=== PATIENT | female | born 1960 | race Caucasian/White ===

== ENCOUNTER 2018-04-18 11:26 | Emergency (ER) | payer BC ==
[~2018-04-18] VITALS: Ht 162.6 cm; Wt 74.8 kg
[~2018-04-18 11:26] MED LIST: COZAAR25 MG PO; FIORINAL-COD 31 EACH PO; Z.0.METRONIDAZOLE500 PO; Z.0.PAROXETINE HCL20 PO
[2018-04-18 12:10] LABS: BASOPHILS # (AUTO) 0.1 (0.0-0.1); BASOPHILS % 0.5 % (0.0-1.0); EOSINOPHILS # (AUTO) 0.2 (0.0-0.4); EOSINOPHILS % 2.4 % (0.0-6.0); HEMATOCRIT 39.8 % (34.2-44.1); HEMOGLOBIN 13.5 g/dL (12.0-16.0); LYMPHOCYTES # (AUTO) 2.7 (1.0-3.2); LYMPHOCYTES % 28.5 % (18.0-39.1); MEAN CORPUSCULAR HEMOGLOBIN 30.3 pg (28-32); MEAN CORPUSCULAR HGB CONC 33.9 g/dL (31-35); MEAN CORPUSCULAR VOLUME 89.4 fL (81-99); MONOCYTES # (AUTO) 0.7 (0.2-0.8); MONOCYTES % 7.3 % (4.4-11.3); NEUTROPHILS # (AUTO) 5.8 (2.1-6.9); PLATELET COUNT 222 x10e3/uL (140-360); RED BLOOD COUNT 4.45 x10e6/uL (3.6-5.1); RED CELL DISTRIBUTION WIDTH 13.1 % (11.7-14.4)
[2018-04-18 12:14] LABS: COLOR,URINE YELLOW (YELLOW); LEUKOCYTE ESTERASE ,URINE NEGATIVE (NEGATIVE); NITRITE,URINE NEGATIVE (NEGATIVE); PROTEIN,URINE DIPSTICK 2+ (NEGATIVE)
[2018-04-18 12:15] LABS: BILIRUBIN,URINE NEGATIVE (NEGATIVE); CLARITY,URINE HAZY (CLEAR); KETONES,URINE NEGATIVE (NEGATIVE); URINE UROBILINOGEN 0.2 mg/dL (0.2 - 1)
[2018-04-18] MEDS ORDERED: KETOROLAC TROMETHAMINE 30 MG/ML VIAL IV STA (12:18)
[2018-04-18] MEDS ORDERED: ONDANSETRON HCL INJ 2 MG/ML VIAL IV STA ×2 (12:18→17:42)
[2018-04-18 12:28] LABS: BACTERIA,URINE FEW /HPF; EPITHELIAL CELLS,URINE FEW /LPF; RBC,URINE 0-5 /HPF (0-5); WBC,URINE (MAN) 0-5 /HPF (0-5)
[2018-04-18 12:33] LABS: ALANINE AMINOTRANSFERASE 18 IU/L (0-55); ALBUMIN 3.7 g/dL (3.5-5.0); ALBUMIN/GLOBULIN RATIO 1.3 (0.8-2.0); ALKALINE PHOSPHATASE 96 IU/L (40-150); ANION GAP 14.7 mmol/L (8-16); BLOOD UREA NITROGEN 13 mg/dL (7-26); BUN/CREATININE RATIO 19 (6-25); CALCIUM 10.1 mg/dL (8.4-10.2); CARBON DIOXIDE 27 mmol/L (22-29); CHLORIDE 103 mmol/L (98-107); CREATININE, SERUM 0.67 mg/dL (0.57-1.11); EST GLOMERULAR FILTRATION RATE > 60 ML/MIN (60-); GLUCOSE 108 mg/dL (74-118); POTASSIUM 3.7 mmol/L (3.5-5.1); SODIUM 141 mmol/L (136-145)
[2018-04-18] MEDS ORDERED: DIATRIZOATE MEGL/DIATRIZOA SOD 30 ML BTL PO ONE (12:44)
[2018-04-18] MEDS ORDERED: HYDROMORPHONE 1MG/1ML INJ IV STA ×2 (13:04→17:42)
--- NOTE | 2018-04-18 14:12 | Diagnostic Imaging Report ---
EXAM: CT Abdomen and Pelvis WITH contrast INDICATION: Left lower quadrant pain for 2 days \S\LLQ PAIN RADIATES TO BACKQ \[id number] \S\1320 \S\N COMPARISON: None. TECHNIQUE: Abdomen and pelvis were scanned utilizing a multidetector helical scanner from the lung base to the pubic symphysis after administration of IV contrast. Coronal and sagittal reformations were obtained. Routine protocol was performed. Scan was performed when during portal venous phase. IV CONTRAST: 100 mL of Isovue-370 ORAL CONTRAST: Gastroview COMPLICATIONS: None RADIATION DOSE: Total DLP: 500.03 mGy*cm Estimated effective dose: (DLP x 0.015 x size factor) mSv CTDIvol has been reviewed. It is below the limits set by the Radiation Protocol Committee (RPC). FINDINGS: LINES and TUBES: None. LOWER THORAX: Multiple surgical clips along the right hemidiaphragm. HEPATOBILIARY: No focal hepatic lesions. No biliary ductal dilation. GALLBLADDER: No radio-opaque stones or sludge. No wall thickening. SPLEEN: No splenomegaly. PANCREAS: No focal masses or ductal dilatation. ADRENALS: Thickened left adrenal gland. Unremarkable right adrenal gland. KIDNEYS/URETERS: Kidneys enhance symmetrically. No hydronephrosis. No cystic or solid mass lesions. No stones. GI TRACT: No abnormal distention, wall thickening, or evidence of bowel obstruction. 3.9 cm duodenal diverticulum along the second duodenal segment. Appendix is normal. PELVIC ORGANS/BLADDER: Unremarkable. LYMPH NODES: No lymphadenopathy. VESSELS: There is moderate atherosclerotic disease in the aorta and major arterial branches. No abdominal aortic aneurysm. PERITONEUM / RETROPERITONEUM: No free air or fluid. BONES: There are degenerative changes in the lumbar spine. Mild wedging of T11 and T12. SOFT TISSUES: Gluteal injection granulomas. IMPRESSION: No acute abnormalities in the abdomen and pelvis. Signed by: DR. Steve Shaffer MD on 04/18/2018 2:09 PM
[2018-04-18] MEDS ORDERED: IOPAMIDOL 370 MG/ML 200 ML INFUS..BTL INJ ONE (14:54)
[2018-04-18] MEDS ORDERED: SODIUM CHLORIDE 0.9% 50ML 50 ML ONE (14:54)
[2018-04-18 18:11] VITALS: BP 155/82
== END 2018-04-18 18:11 | disposition home or self-care (01) ==
LOC: ER 11:26
DX: R10.32 Left lower quadrant pain (principal); R11.0 Nausea; I10 Essential (primary) hypertension; F32.9 Major depressive disorder, single episode, unspecified
CPT/HCPCS: 36415; 74177; 80053; 81001; 85025; 99284; J1170; J1885; J2405; Q9967

== ENCOUNTER 2020-04-14 18:42 | Emergency (ER) | payer BC ==
[~2020-04-14] VITALS: Ht 162.6 cm; Wt 77.1 kg
[2020-04-14] MEDS ORDERED: LIDOCAINE 1% W/EPINEPHRINE 20 ML VIAL INJ ONE (19:00)
[2020-04-14] MEDS ORDERED: HYDROCODONE/APAP 5MG-325MG TAB PO ONE (19:00)
[2020-04-14] MEDS ORDERED: TETANUS/DIPHTHERIA TOX ADULT 0.5 ML SYR IM ONE (19:00)
--- NOTE | 2020-04-14 19:12 | Emergency Department Note ---
History of Present Illnes History of Present Illness Chief Complaint: Extremity Trauma/Pain History of Present Illness This is a 60 year old female presents with c/o laceration to left elbow s/p slipping and falling landing on concreted, also c/o abrasion to left pinky toe, denies head injury, denies loc . Historian: Patient Arrival Mode: Car Machine Zipper Trimmer Required: No Onset (how long ago): minute(s) (30) Location: left elbow Quality: laceration and pain Radiation: Reports non-radiation Severity: moderate Onset quality: sudden Duration (how long): hour(s) (30 minutes) Timing of current episode: constant Progression: unchanged Chronicity: new Context: Reports trauma/injury (as above) Relieving factors: none Associated symptoms: Reports denies other symptoms Treatments prior to arrival: none Past Medical/Family History Physician Review I have reviewed the patient's past medical and family history. Any updates have been documented here. Past Medical History Recent Fever: No Clinical Suspicion of Infectio: No New/Unexplained Change in Ment: No Past Medical History: Hypertension, Diabetes, Hyperlipedemia Other Medical History: ANXIETY, DEPRESSION Past Surgical History: Other Surgery: COLON RESECTION X2 LT EAR SURGERY NOSE SURGERY FOR STAPH CARPAL TUNNEL KATYA WRIST RT FOOT BROKEN BONE Social History Smoking Cessation: Never Smoker Alcohol Use: None Any Illegal Drug Use: No Family History Family history of heart diseas: No Other Last Tetanus: <10 YRS Review of Systems Review of Systems Constitutional: Reports no symptoms EENTM: Reports no symptoms Cardiovascular: Reports no symptoms Respiratory: Reports no symptoms Gastrointestinal: Reports no symptoms Genitourinary: Reports no symptoms Musculoskeletal: Reports as per HPI Integumentary: Reports no symptoms Neurological: Reports no symptoms Psychological: Reports no symptoms Endocrine: Reports no symptoms Hematological/Lymphatic: Reports no symptoms Physical Exam Related Data Allergies: Coded Allergies: No Known Drug Allergies (Verified Allergy, Unknown, NONE, 04/18/18) Triage Vital Signs Vital Signs Date Time Temp Pulse Resp B/P (MAP) Pulse Ox O2 Delivery O2 Flow Rate FiO2 04/14/20 18:53 98.2 67 18 149/88 98 04/14/20 19:01 Room Air Vital signs reviewed: Yes Physical Exam CONSTITUTIONAL Constitutional: Present well-developed, Present well-nourished, Present distressed (mild) HENT HENT: Present normocephalic, Present atraumatic, Present oropharynx clear/moist, Present nose normal HENT L/R: Present left ext ear normal, Present right ext ear normal EYES Eyes: Reports PERRL, Reports conjunctivae normal NECK Neck: Present ROM normal PULMONARY Pulmonary: Present effort normal, Present breath sounds normal CARDIOVASCULAR Cardiovascular: Present regular rhythm, Present heart sounds normal, Present capillary refill normal, Present normal rate GASTROINTESTINAL Abdominal: Present soft, Present nontender, Present bowel sounds normal GENITOURINARY Genitourinary: Present exam deferred SKIN Skin: Present warm, Present dry, Present other (3.5 cm laceration to posterior left elbow, abrasion to left 5th toe) MUSCULOSKELETAL Musculoskeletal: Present tenderness (left elbow), Present swelling (mild left elbow), Present other (pain with rom of left elbow although full rom remains intact, n/v intact); Absent deformity NEUROLOGICAL Neurological: Present alert, Present oriented x 3, Present no gross motor or sensory deficits PSYCHOLOGICAL Psychological: Present mood/affect normal, Present judgement normal Results Imaging Imaging results reviewed: Yes Procedures Laceration Laceration: Laceration 1 Site: upper extremity Side: left (posterior elbow) Size (cm): 3.5 Description: linear Depth: simple, single layer Local anesthesia: lidocaine 1%, with epi Amount of anesthesia (mL): 7 Pre-repair: wound exposed, irrigated extensively, deep structures intact Skin layer closed with: other (prolene) Size (cm): other (2-0) Number of sutures: 9 Technique: simple, interrupted Assessment & Plan Medical Decision Making MDM pt with left elbow injury s/p fall, has 3.5 cm laceration to posterior elbow and pain with palpation and rom left elbow xray ordered to eval for fracture. norco 5/325 ordered po tetanus 0.5 cc im ordered no fracture seen on xray laceration repaired see repair note Patient discharged with prescriptions for Keflex 500 mg one by mouth 3 times a day #30 and Tylenol No. 3 one by mouth every 6 hours #15 Patient instructed on cleaning the wound twice a day with mild soap and water and to have sutures removed in 14 days. Assessment & Plan Final Impression: (1) Laceration of left elbow (2) Abrasion of fifth toe, left Depart Disposition: HOME, SELF-CARE Last Vital Signs Date Time Temp Pulse Resp B/P (MAP) Pulse Ox O2 Delivery O2 Flow Rate FiO2 04/14/20 19:01 98.2 102 17 128/88 97 Room Air Home Meds Reported Medications Codeine/Butalbital/Asa/Caffein (FIORINAL-COD [id number] CAP) 1 Each Capsule, 1 TAB PO TID 07/04/13 Losartan Potassium (COZAAR) 25 Mg Tablet, 25 MG PO DAILY 07/04/13 Paroxetine Hcl (Paroxetine Hcl) 20 Mg Tablet, 20 MG PO DAILY 03/08/12 Medications in the ED Acetaminophen/ Hydrocodone Bitart 1 ea ONCE ONCE PO ; Start 04/14/20 at 19:00; Stop 04/14/20 at 19:01; Status DC Lidocaine/ Epinephrine ONCE ONCE INJ ; Start 04/14/20 at 19:00; Stop 04/14/20 at 19:01; Status DC Tetanus/ Diphtheria Toxoids 0.5 ml ONCE ONCE IM ; Start 04/14/20 at 19:00; Stop 04/14/20 at 19:01; Status DC ETHEL MÁRQUEZ MD Apr 14, 2020 19:12
--- OUTSIDE RECORDS SUMMARY | 2020-04-14 19:16 | XMS REPORT | Continuity of Care Document ---
Author Author [facility] TalkBin ZayraDESI [facility] Information i-marker Address Unknown Phone Unavailable Care Team Providers Care Research And Development Scientist Name Role Phone [facility] Information Exchange Unavailable Un available Problems Problem Status Onset Date Classification Date Reported Comments Source Other abnormal and inconclusive findings on diagnostic imaging of breast 07/21/2018 12/01/2018 [facility] R98.0 Active 05/14/2018 [facility] R92.8 - OTH ABN AND INCONCLUSIVE FINDI Active 12/16/2017 [facility] DX; R92.8=OTHER ABNORMAL AND INCONCLUSIV Active 09/20/2016 [facility] N63 - UNSPECIFIED LUMP IN BREAST Active 08/30/2016 [facility] Z12.31 - ENCNTR SCREEN MAMMOGRAM FOR MA Active 06/29/2016 [facility] Medications No Data Provided for This Section Allergies, Adverse Reactions, Alerts No Known Medication Allergies Immunizations No Data Provided for This Section Results No Data Provided for This Section Pathology Reports No Data Provided for This Section Diagnostic Reports Report Value Date Source Breast Mammo Diag MARVIN w radha incl CAD MA BILATERAL DIGITAL DIAGNOSTIC MAMMOGRAM 3D/2D WITH CAD: 05/14/2018 CLINICAL: Follow Up On Calcs/Abnormal Mammogram. Current study was evaluated with a Computer Aided Detection (CAD) system. COMPARISON:Comparison is made to exams dated: 09/13/2016 mammogram, 08/22/2016 mammogram - [facility], and 09/27/2016 stereotactic biopsy - [facility]. TECHNIQUE: Digital Breast Tomosynthesis was performed and utilized for Interpretation. CogniFit Version 1.3 was utilized for computer aided detection. FINDINGS: The tissue of both breasts is almost entirely fat. There are benign calcifications in both breasts. There also is a biopsy clip in the right breast. No significant masses, calcifications, or other findings are seen in either breast. There has been no significant interval change. IMPRESSION: BENIGN RECOMMENDATION:There is no mammographic evidence of malignancy. A 1 year screening mammogram is recommended.(05/15/2019) This exam was interpreted at [id number] for [facility] [place]. Ganesh ramsey/david:05/14/2018 14:53:37 Front End Wheel Loader Operator(s): Isabella Mendoza, [facility] letter sent: BI-RADS 1/2 Mammogram BI-RADS: 2 Benign 05/14/2018 [facility] Stereo Breast BX Uni /Clip Secondary SD - STEREO BREAST BX UNI /CLIP SECONDARY SD/R STEREOTACTIC GUIDED BIOPSY RIGHT BREAST WITH MARKING DEVICE INSERTED AND POST DIGITAL MAMMOGRAPHIC IMAGING AND RADIOGRAPHIC SPECIMEN IMAGIN09/27/2016 CLINICAL: Indeterminate low suspicion right breast calcifications. PATIENT CONSENT: Oral and written informed consent was obtained. Risks, benefits, and alternatives were discussed with the patient. Risks include but are not limited to pain, infection, bleeding, incomplete procedure, repeat procedure, pneumothorax, damage to surrounding tissues, and allergic reaction. The patient understands the plan and wishes to proceed. A time out was performed immediately prior to the procedure to confirm the patient's identity (name/date of ) and correct procedure site. Correlation is made to exams dated: 08/22/2016 mammogram and 09/13/2016 mammogram - [facility]. A stereotactic guided biopsy was performed for the concerning area of clustered calcifications located in the right breast at 2 o'clock posterior depth. This was described on the previous mammography report. The skin was prepped in the usual manner. 10 ccs of 1% lidocaine was administered during the procedure. A skin eliot was made in the breast. The abnormality was approached from the me dial aspect using an upright digital mammography unit. A 9 gauge biopsy needle was placed adjacent to the abnormality under computer guidance and confirmatory stereotactic mammography images were obtained to document needle placement. Once the needle was documented to be in the correct location, multiple specimens were obtained using the vacuum assisted Suros Eviva device. A SecurMark mahesh shaped biopsy clip was inserted into the biopsy cavity. A skin adhesive and a skin closure strip were applied to the access site. Post procedure digital mammographic imaging demonstrates the clip at the targeted area and partial removal of the calcifications. The specimens were sent to the laboratory for pathological analysis. IMPRESSION: STEREOTACTIC GUIDED BIOPSY BENIGN Stereotactic guided biopsy of the area of clustered calcifications in the right breast at 2 o'clock posterior depth was successful with no apparent post procedure complications. The imaged specimens includes the calcifications. Pathology indicates benign results - 'Fibroadenomatous nodules with coarse microcalcifications'. Pathology results are concordant with imaging findings. A follow-up right diagnostic mammogram and possible ultrasound in 6 months is recommended to demonstrate stability. Ganesh Augustin M.D. jt/:10/01/2016 13:51:50 Front End Wheel Loader Operator: Basilia Klein, [facility] This exam was dictated and interpreted by [id number] for [facility] [place]. letter sent: Post Bx Results 09/27/2016 [facility] Digital Mammo DX Uni MA - DIGI RICK MAMMO DX UNI MA/R UNILATERAL RIGHT DIGITAL DIAGNOSTIC MAMMOGRAM WITH CAD: 09/13/2016 CLINICAL: R92.8 Other Abnormal And Inconclusive Findings On Diagnostic Imaging Of Breast. Current study was evaluated with a Computer Aided Detection (CAD) system. Comparison is made to exam dated: 08/22/2016 mammogram - [facility]. The tissue of the right breast is almost entirely fat. There are 1 cm linear amorphous calcifications in the right breast at 2 o'clock middle depth 12 cm from the nipple. No other significant masses or calcifications are seen in the breast. IMPRESSION: SUSPICIOUS OF MALIGNANCY The 1 cm linear amorphous calcifications in the right breast are suspicious of malignancy. A stereotactic biopsy is recommended. Professional services are provided by the [facility]. Curt Lara M.D., cm/david:09/13/2016 10:39:07 Front End Wheel Loader Operator: Lesvia STEPHEN(Meera)(), [facility] This exam was dictated and interpreted by [id number] for [facility]. letter sent: Biopsy Mammogram BI-RADS: 4 Suspicious abnormality 09/13/2016 [facility] Digital Mammo Screening Marvin MA - DIGITAL MAMMO SCREENING MARVIN MA BILATERAL DIGITAL SCREENING MAMMOGRAM WITH CAD: 08/22/2016 CLINICAL: Z12.31 Encounter For Screening Mammogram For Malignant Neoplasm Of Breast. Current study was evaluated with a Computer Aided Detection (CAD) system. No prior exams were available for comparison. The tissue of both breasts is almost entirely fat. There are 1 cm linear calcifications in the right breast at 2 o'clock middle depth 12 cm from the nipple. No other significant masses, calcifications, or other findings are seen in either breast. IMPRESSION: INCOMPLETE: NEEDS ADDITIONAL IMAGING EVALUATION The 1 cm linear calcifications in the right breast are indeterminate. Magnification views are recommended. Professional services are provided by the [facility]. Curt Lara M.D., cm/david:08/23/2016 08:26:37 Front End Wheel Loader Operator: Camila STEPHEN(Meera)(Iris), [facility] This exam was dictated and interpreted by [id number] for [facility]. letter sent: Additional Imaging Mammogram BI-RADS: 0 Indeterminate 08/22/2016 [facility] Consultation Notes No Data Provided for This Section Discharge Summaries No Data Provided for This Section History and Physicals No Data Provided for This Section Vital Signs No Data Provided for This Section Encounters Location Location Details Encounter Type Encounter Number Reason For Visit Attending Provider ADM Date DC Date Status Source [facility] [id number] Leslee Dafgrand [place] 08/22/2016 08/23/2016 [facility] [id number] Out[facility] [id number] Leslee Dafgrand [place] 09/27/2016 09/28/2016 [facility] [id number] Leslee Dafgrand [place] 03/06/2018 03/06/[facility] [id number] Leslee Dafgrand moundy 04/03/2018 04/03/2018 [facility] Outpatient [id number] Leslee Dafgrand moundy 05/14/2018 05/15/2018 [facility] Procedures No Data Provided for This Section Assessment and Plan No Data Provided for This Section Plan of Care No Data Provided for This Section Social History Social History Date Source No data available for this section 05/15/2018 [facility] No data available for this section 03/06/2018 [facility] Family History No Data Provided for This Section Advance Directives No Data Provided for This Section Functional Status No Data Provided for This Section
--- OUTSIDE RECORDS SUMMARY | 2020-04-14 19:16 | XMS REPORT | Continuity of Care Document ---
Author Author [facility] t Organization [facility] Address [address] [place] [address] Phone Unavailable Care Team Providers Care Guest Service Aide Name Role Phone Mrac ADAIR MD PCP Fiona Cobb Attphys Keshia STEVENSON Attphys Unavailable Fiona Cobb Admphys Payers Payer Name Policy Type Policy Number Effective Date Ex[facility] Date [id number]00 [facility] Problems Condition Name Condition Details Condition Category Status Onset Date Resolution Date Last Treatment Date Treating Clinician Comments Source R98.0 R98. 0 Active 05/14/2018 [facility] Diagnosis Active 2018-05-14 00:00:00 2018-05-14 13:53:00 Dalton Esparza R92.8 - OTH ABN AND INCONCLUSIVE FINDI R92.8 - OTH ABN AND INCONCLUSIVE FINDI Active 12/16/2017 [facility] Diagnosis Active 2017-12-16 00:01:00 2018-05-06 15:28:00 Iris Esparza DX; R92.8=OTHER ABNORMAL AND INCONCLUSIV DX; R92.8=OTHER ABNORMAL AND INCONCLUSIV Active 09/20/2016 [facility] Diagnosis Ac tive 2016-09-20 00:00:2016-09-27 07:46:00 [facility] - UNSPECIFIED LUMP IN BREAST N63 - UNSPECIFIED LUMP IN BREAST Active 08/30/2016 PATRICIA Delaney Diagnosis Active 2016-08-30 00:01:00 2016-09-29 [facility]TR SCREEN MAMMOGRAM FOR MA Z12.31 - ENCNTR SCREEN MAMMOGRAM FOR MA Active 06/29/2016 PATRICIA BECKER [place] Diagnosis Active 2016-06-29 00:01:00 2016-08-22 15:21:00 [facility] Other abnormal and inconclusive findings on diagnostic imaging of breast Other abnormal and inconclusive findings on diagnostic imaging of breast 07/21/2018 12/01/2018 [facility] Problem 2017 05:10:34 2018-12-01 15:29:58 2018-12-01 15:29:58 [facility] Allergies, Adverse Reactions, Alerts Allergy Name Allergy Type Status Severity Reaction(s) Onset Date Inacti ve Date Treating Clinician Comments Source No Known Allergies DA Active U 2018-09-05 00:00:00 [facility] No Known Allergies DA Active U 2011-12-06 00:00:00 [facility] Social History Social Habit Start Date Stop Date Quantity Comments Source Social History 2018-03-06 18:00:00 2018-03-06 18:00:00 [facility] Medications Ordered Medication Name Filled Medication Name Start Date Stop Da te Current Medication? Ordering Clinician Indication Dosage Frequency Signature (SIG) Comments Components Source Codeine/Butalbital/Asa/Caffein (Fiorinal-Cod 30-50-325 -40 Cap) 1 Each Capsule Codeine/Butalbital/Asa/Caffein (Fiorinal-Cod 98-17-610-40 Cap) 1 Each Capsule Yes 1 Three Times A Day [facility] Losartan Potassium (Cozaar) 25 Mg Tablet Losartan Pota ssium (Cozaar) 25 Mg Tablet Yes 25 Daily [facility] Paroxetine Hcl 20 Mg Tablet Paroxetine Hcl 20 Mg Tablet Yes 20 Daily [facility] Metronidazole 500 Mg Tablet, 500 Mg Oral Metronidazole 500 Mg Tablet, 500 Mg Oral 2012-11-05 00:00:00 No 500 Daily [facility] Procedures Procedure Date / Time Performed Performing Clinician [facility] e Computed tomography of abdomen and pelvis with contrast 2017 00:00:00 MOHAN STEVENSON [facility] Encounters Start Date/Time End Date/Time Encounter Type Admission Type [facility] Care Department Encounter ID Source 2018-05-14 13:45:00 2018-05-14 23:59:00 Outpatient Leslee Cobb [facility] [id number] 2018-04-18 11:26:00 2018-04-18 18:11:00 Departed Emergency Room 1 MOHAN STEVENSON [facility] [id number] [facility] 2018-04-03 08:00:00 2018-04-03 08:00:00 Outpatient Leslee Cobb [facility] [id number] 2018-03-06 13:00:00 2018-03-06 13:00:00 Outpatient Leslee Cobb [facility] [id number] 2016-09-27 07:39:00 2016-09-27 23:59:00 Outpatient Leslee Cobb [facility] [id number] 2016-09-13 09:01:00 2016-09-13 23:59:00 Outpatient Leslee Cobb [facility] [id number] 2016-08-22 15:09:00 2016-08-22 23:59:00 Outpatient Leslee Cobb [facility] [id number] Results Test Description Test Time Test Comments Results Result Comments Source CT ABDOMEN/PELVIS W 2018-04-18 14:00:00 [place] [address] Patient Name: DESI HUNTER MR #: [id number] : 1960 Age/Sex: 58/F Req #: [id number] Adm Physician: Ordered by: MOHAN STEVENSON MD Report #: [id number] Location: ER Room/Bed: Procedure: [id number] CT/CT ABDOMEN/PELVIS W Exam Date: 04/18/18 Exam Time: 1320 REPORT STATUS: Signed EXAM: CT Abdomen and Pelvis WITH contrast INDICATION: Left lower quadrant pain for 2 days COMPARISON: None. TECHNIQUE: Abdomen and pelvis were scanned utilizing a multidetector helical scanner from the lung base to the pubic symphysis after administration of IV contrast. Coronal and sagittal reformations were obtained. Routine protocol was performed. Scan was performed when during portal venous phase. IV CONTRAST: 100 mL of Isovue-370 ORAL CONTRAST: Gastroview COMPLICATIONS: None RADIATION DOSE: Total DLP: 500.03 mGy*cm Estimated effective dose: (DLP x 0.015 x size factor) mSv CTDIvol has been reviewed. It is below the limits set by the Radiation Protocol Committee (RPC). FINDINGS: LINES and TUBES: None. LOWER THORAX: Multiple surgical clips along the right hemidiaphragm. HEPATOBILIARY: No focal hepatic lesions. No biliary ductal dilation. GALLBLADDER: No radio-opaque stones or sludge. No wall thickening. SPLEEN: No splenomegaly. PANCREAS: No focal masses or ductal dilatation. ADRENALS: Thickened left adrenal gland. Unremarkable right adrenal gland. KIDNEYS/URETERS: Kidneys enhance s ymmetrically. No hydronephrosis. No cystic or solid mass lesions. No stones. GI TRACT: No abnormal distention, wall thickening, or evidence of bowel obstruction. 3.9 cm duodenal diverticulum along the second duodenal segment. Appendix is normal. PELVIC ORGANS/BLADDER: Unremarkable. LYMPH NODES: No lymphadenopathy. VESSELS: There is moderate atherosclerotic disease in the aorta and major arterial branches. No abdominal aortic aneurysm. PERITONEUM / RETROPERITONEUM: No free air or fluid. BONES: There are degenerative changes in the lumbar spine. Mild wedging of T11 and T12. SOFT TISSUES: Gluteal injection granulomas. IMPRESSION: No acute abnormalities in the abdomen and pelvis. Signed by: DR. Steve Smart MD on 04/18/2018 2:09 PM Dictated By: STEVE SMART MD 140 Transcribed By: YOUNG on 04/18/18 1409 COPY TO: MOHAN STEVENSON MD Sodium Level 2018-04-18 12:33:00 Test Item Sodium Level (test code = 2951-2) 141 136-145 [facility] Ruafp4886-64-73 12:33:00* Test Item Value Reference Range Interpretation Comments Potassium Level (test code = 2823-3) 3.7 3.5-5.1 [facility] HospitalChloride Ffopu0266-65-42 12:33:00* Test Item Value Reference Range Interpretation Comments Chloride Level (test code = 2075-0) 103 98-107 [facility] HospitalCarbon Dioxide Tfxzk4153-83-86 12:33:00* Test Item Value Reference Range Interpretation Comments Carbon Dioxide Level (test code = 2028-9) 27 22-29 [facility] HospitalAnion Lee8721-22-66 12:33:00* Test Item Value Reference Range Interpretation Comments Anion Gap (test code = 94030-4) 14.7 8-16 [facility] HospitalBlood Urea Lvrcxyid6135-49-68 12:33:00* Test Item Value Reference Range Interpretation Comments Blood Urea Nitrogen (test code = 3094-0) 13 7-26 [facility] HospitalCreatinine2018-08-31 12:33:00* Test Item Value Reference Range Interpretation Comments Creatinine (test code = 2160-0) 0.67 0.57-1.11 [facility] HospitalBUN/Creatinine Duxgw4554-96-77 12:33:00* Test Item Value Reference Range Interpretation Comments BUN/Creatinine Ratio (test code = 3097-3) 19 6-25 [facility] HospitalEstimat Glomerular Filtration Rate 2018-04-18 12:33:00* Test Item Value Reference Range Interpretation Comments Estimat Glomerular Filtration Rate (test code = 61141-6) 60- >60 Ranges were taken from the National Kidney Disease Education Program and the [facility] [employer] literature.Reference ranges:60 or greater: Vdfybf47-64 ( for 3 consecutive months): Chronic kidney disease 15 or less: Kidney failureMethodist TexSan HospitalGlucose Pbvwa9390-59-64 12:33:00* Test Item Value Reference Range Interpretation Comments Glucose Level (test code = EYA7679) 108 74-118 [facility] HospitalCalcium Wbyqu9273-40-85 12:33:00* Test Item Value Reference Range Interpretation Comments Calcium Level (test code = 71286-3) 10.1 8.4-10.2 [facility] HospitalTotal Vkkwvrldx3921-19-91 12:33:00* Test Item Value Reference Range Interpretation Comments Total Bilirubin (test code = 1975-2) 0.3 0.2-1.2 [facility] HospitalAspartate Amino Transf (AST/SGOT) 2018-04-18 12:33:00* Test Item Value Reference Range Interpretation Comments Aspartate Amino Transf (AST/SGOT) (test code = Aspartate Amino Transf (AST/SGOT)) 16 5-34 [facility] HospitalAlanine Aminotransferase (ALT/SGPT) 2018-04-18 12:33:00* Test Item Value Reference Range Interpretation Comments Alanine Aminotransferase (ALT/SGPT) (test code = 1742-6) 18 0-55 [facility] Hhelinv9416-32-67 12:33:00* Test Item Value Reference Range Interpretation Comments Total Protein (test code = 2885-2) 6.6 6.5-8.1 [facility] HospitalAlbumin2018-08-31 12:33:00* Test Item Value Reference Range Interpretation Comments Albumin (test code = 1751-7) 3.7 3.5-5.0 [facility] HospitalGlobulin2018-08-31 12:33:00* Test Item Value Reference Range Interpretation Comments Globulin (test code = 33634-1) 2.9 2.3-3.5 [facility] HospitalAlbumin/Globulin Yuqzh9194-68-38 12:33:00 * Test Item Value Reference Range Interpretation Comments Albumin/Globulin Ratio (test code = 1759-0) 1.3 0.8-2.0 [facility] HospitalAlkaline Thyxuqeyqex6925-70-57 12:33:00* Test Item Value Reference Range Interpretation Comments Alkaline Phosphatase (test code = 6768-6) 96 40-150 [facility] HospitalUrine Wszcj3466-33-37 12:28:00* Test Item Value Reference Range Interpretation Comments Urine Blood (test code = 73824-5) NEGATIVE NEGATIVE [facility] HospitalUrine FTM1261-02-70 12:28:00* Test Item Value Reference Range Interpretation Comments Urine WBC (test code = 5821-4) 0-5 0-5 [facility] Hospital[facility] QGA6809-17-66 12:28:00* Test Item Value Reference Range Interpretation Comments Urine RBC (test code = 81817-9) 0-5 0-5 [facility] Hospital[facility] Dggrjtbz9454-71-96 12:28:00* Test Item Value Reference Range Interpretation Comments Urine Bacteria (test code = 95749-0) FEW NONE [facility] HospitalUrine Epithelial Jzawc5107-04-02 12:28:00 * Test Item Value Reference Range Interpretation Comments Urine Epithelial Cells (test code = 35622-4) FEW NONE [facility] HospitalWhite Blood Nebne8829-40-23 12:17:00* Test Item Value Reference Range Interpretation Comments White Blood Count (test code = 6690-2) 9.55 4.8-10.8 [facility] HospitalRed Blood Wxswf8541-66-00 12:17:00* Test Item Value Reference Range Interpretation Comments Red Blood Count (test code = 789-8) 4.45 3.6-5.1 [facility] HospitalHemoglobin2018-08-31 12:17:00* Test Item Value Reference Range Interpretation Comments Hemoglobin (test code = 63247-6) 13.5 12.0-16.0 [facility] HospitalHematocrit2018-08-31 12:17:00* Test Item Value Reference Range Interpretation Comments Hematocrit (test code = 4544-3) 39.8 34.2-44.1 [facility] HospitalMean Corpuscular Hagbkp4308-53-21 12:17:00* Test Item Value Reference Range Interpretation Comments Mean Corpuscular Volume (test code = 787-2) 89.4 81-99 [facility] HospitalMean Corpuscular Jxshgisltn3247-35-73 12:17:00* Test Item Value Reference Range Interpretation Comments Mean Corpuscular Hemoglobin (test code = 785-6) 30.3 28-32 [facility] HospitalMean Corpuscular Hemoglobin Concent 2018-04-18 12:17:00* Test Item Value Reference Range Interpretation Comments Mean Corpuscular Hemoglobin Concent (test code = 786-4) 33.9 31-35 [facility] HospitalRed Cell Distribution Iklhx0498-48-83 12:17:00* Test Item Value Reference Range Interpretation Comments Red Cell Distribution Width (test code = 21292-4) 13.1 11.7 -14.4 [facility] HospitalPlatelet Aormt1096-15-91 12:17:00* Test Item Value Reference Range Interpretation Comments Platelet Count (test code = 777-3) 222 140-360 [facility] HospitalNeutrophils (%) (Auto)2018-04-18 12:17:00 * Test Item Value Reference Range Interpretation Comments Neutrophils (%) (Auto) (test code = 34047-6) 61.0 38.7-80.0 [facility] HospitalLymphocytes (%) (Auto)2018-04-18 12:17:00 * Test Item Value Reference Range Interpretation Comments Lymphocytes (%) (Auto) (test code = 736-9) 28.5 18.0-39.1 [facility] HospitalMonocytes (%) (Auto)2018-04-18 12:17:00* Test Item Value Reference Range Interpretation Comments Monocytes (%) (Auto) (test code = 5905-5) 7.3 4.4-11.3 [facility] HospitalEosinophils (%) (Auto)2018-04-18 12:17:00 * Test Item Value Reference Range Interpretation Comments Eosinophils (%) (Auto) (test code = 713-8) 2.4 0.0-6.0 [facility] HospitalBasophils (%) (Auto)2018-04-18 12:17:00* Test Item Value Reference Range Interpretation Comments Basophils (%) (Auto) (test code = 706-2) 0.5 0.0-1.0 [facility] HospitalIM GRANULOCYTES %2018-04-18 12:17:00* Test Item Value Reference Range Interpretation Comments IM GRANULOCYTES % (test code = IM GRANULOCYTES %) 0.3 0.0- 1.0 [facility] HospitalNeutrophils # (Auto)2018-04-18 12:17:00* Test Item Value Reference Range Interpretation Comments Neutrophils # (Auto) (test code = 751-8) 5.8 2.1-6.9 [facility] HospitalLymphocytes # (Auto)2018-04-18 12:17:00* Test Item Value Reference Range Interpretation Comments Lymphocytes # (Auto) (test code = 65867-4) 2.7 1.0-3.2 [facility] HospitalMonocytes # (Auto)2018-04-18 12:17:00* Test Item Value Reference Range Interpretation Comments Monocytes # (Auto) (test code = 742-7) 0.7 0.2-0.8 [facility] HospitalEosinophils # (Auto)2018-04-18 12:17:00* Test Item Value Reference Range Interpretation Comments Eosinophils # (Auto) (test code = 711-2) 0.2 0.0-0.4 [facility] HospitalBasophils # (Auto)2018-04-18 12:17:00* Test Item Value Reference Range Interpretation Comments Basophils # (Auto) (test code = 704-7) 0.1 0.0-0.1 [facility] HospitalAbsolute Immature Granulocyte (auto 2018-04-18 12:17:00* Test Item Value Reference Range Interpretation Comments Absolute Immature Granulocyte (auto (felicita t code = Absolute Immature Granulocyte (auto) 0.03 0-0.1 [facility] HospitalUrine Czcxk3240-06-86 12:15:00* Test Item Value Reference Range Interpretation Comments Urine Color (test code = 5778-6) YELLOW YELLOW [facility] HospitalUrine Eraijxy3808-47-83 12:15:00* Test Item Value Reference Range Interpretation Comments Urine Clarity (test code = 28382-0) HAZY CLEAR [facility] HospitalUrine Specific Nczrxso7831-24-13 12:15:00 * Test Item Value Reference Range Interpretation Comments Urine Specific [place] (test code = 5811-5) 1.010 1.010-1.02 5 [facility] HospitalUrine hK1235-74-53 12:15:00* Test Item Value Reference Range Interpretation Comments Urine pH (test code = 04715-8) 7 5-7 [facility] Hospital[facility] Leukocyte Xhzjpkcb2419-07-23 12:15:00* Test Item Value Reference Range Interpretation Comments Urine Leukocyte Esterase (test code = 5799-2) NEGATIVE NEGATIVE [facility] HospitalUrine Nuspbwn0947-89-02 12:15:00* Test Item Value Reference Range Interpretation Comments Urine Nitrite (test code = 57206-3) NEGATIVE NEGATIVE [facility] HospitalUrine Wqbahyq6743-19-19 12:15:00* Test Item Value Reference Range Interpretation Comments Urine Protein (test code = 5804-0) 2+ NEGATIVE H [facility] HospitalUrine Glucose (UA)2018-04-18 12:15:00* Test Item Value Reference Range Interpretation Comments Urine Glucose (UA) (test code = 2349-9) NEGATIVE NEGATIVE [facility] Blsbhvp9312-48-03 12:15:00* Test Item Value Reference Range Interpretation Comments Urine Ketones (test code = 34414-9) NEGATIVE NEGATIVE [facility] HospitalUrine Disvzhlaimpg9029-67-32 12:15:00* Test Item Value Reference Range Interpretation Comments Urine Urobilinogen (test code = 59932-5) 0.2 0.2-1 [facility] HospitalUrine Hgitgautn5796-66-73 12:15:00* Test Item Value Reference Range Interpretation Comments Urine Bilirubin (test code = 1978-6) NEGATIVE NEGATIVE [facility]
--- NOTE | 2020-04-14 19:57 | Diagnostic Imaging Report ---
X-ray 3 views of the elbow HISTORY: Pain. COMPARISON: None available. FINDINGS: Bones: No acute displaced fracture. Osseous alignment is within normal limits. Joints: The joint spaces are well-maintained. No joint effusion. Soft tissues: There is soft tissue defect of the posterior elbow. IMPRESSION: No acute fracture or dislocation. Soft tissue defect the posterior elbow. Signed by: Ever Coker MD on 04/14/2020 7:54 PM
[2020-04-14] MEDS ORDERED: BACITRACIN ZINC 15 GM OINT TOP ONE (20:00)
[2020-04-14] MEDS ORDERED: BACITRACIN ZINC 0.9GM TP ONE (20:06)
== END 2020-04-14 20:22 | disposition home or self-care (01) ==
LOC: ER 19:13
DX: S51.012A Laceration without foreign body of left elbow, initial encounter (principal); S90.415A Abrasion, left lesser toe(s), initial encounter; W01.0XXA Fall on same level from slipping, tripping and stumbling without subsequent striking against object, initial encounter; Y93.01 Activity, walking, marching and hiking; Y92.89 Other specified places as the place of occurrence of the external cause; I10 Essential (primary) hypertension; E11.9 Type 2 diabetes mellitus without complications; E78.5 Hyperlipidemia, unspecified; F41.9 Anxiety disorder, unspecified; Z98.0 Intestinal bypass and anastomosis status
CPT/HCPCS: 90471; 90714; 99283